=== PATIENT | female | born 1985 | race Native Hawaiian/Other Pacific Islander ===

== ENCOUNTER 2016-10-31 09:24 | Emergency (ER) | payer OTHER ==
[~2016-10-31] VITALS: Ht 162.6 cm; Wt 60.9 kg
[~2016-10-31 09:24] MED LIST: SULF1TAB35 PO
[2016-10-31 09:27] VITALS: BP 112/78; PULSE 99; RESP 13; O2SAT 99
--- NOTE | 2016-10-31 09:50 | ED.REPORT ---
HPI-General Illness Date of Service Oct 31, 2016 ED Provider: Dr. Gabino Gamez M.D. A 31 year old female with a history of gastritis, IBS, and MRSA presents to the ED with dysuria onset yesterday morning. Associated symptoms include urinary frequency, urinary urgency, urinary hesitancy, and hematuria. She has had similar symptoms in the past with a UTI. She tried to flush it by drinking excess water yesterday, with no relief. The patient denies fever, vomiting, or flank pain. Nursing Notes Stated Complaint: POSSIBLE BLADDER INFECTION Chief Complaint: Female Abdominal Pain Nursing Notes Reviewed: Yes Allergies: Coded Allergies: No Known Allergies (Verified Allergy, Unknown, 09/23/14) Scheduled Cephalexin (Cephalexin) 500 Mg Tablet 500 MG PO QID Sulfamethoxazole/Trimeth 800-160 mg (Bactrim DS 800-160 mg) 1 Each Tablet 1 TABLET PO BID General Time Seen by MD: 09:49 Chief Complaint Other (Dysuria) Hx Obtained From: Patient Arrived By: Walk-in Sudden in Onset?: Yes Onset Occurred: Yesterday Symptom Duration: Since onset Associated with: Denies: Fever, Vomiting Pertinent Negative: Relieved by nothing Recent Healthcare: No recent doctor visit Similar Sx Previous: Yes Past Medical History Past Medical History Gastritis MRSA Rt. Breast IBS Past Surgical History Scar tissue removed Rt breast 2005 2010 Noncontributory Family History Noncontributory Smoking History Current Every Day Smoker Social History Works at [employer] Alcohol Use: Denies alcohol use Drug Use: Denies drug use Other Social History: , Lives with children Ambulatory Status Independent Review of Systems + urinary hesitancy Full Review of Systems Constitutional: Denies: Fever GI: Denies: Vomiting Female: Reports: Dysuria, Hematuria, Urinary frequency, Urinary urgency, Denies: Flank pain Physical Exam Vital Signs Vital Signs Date Time Temp Pulse Resp B/P Pulse Ox O2 Delivery O2 Flow Rate FiO2 10/31/16 11:06 36.6 99 13 112/78 99 Room Air 10/31/16 09:27 36.6 99 13 112/78 99 Room Air Initial VS: Reviewed Head / Eyes: Atraumatic, Normocephalic ENT: Conjunctiva normal, No scleral icterus Neck: Supple, Full range of motion Abdomen / GI: Soft, Non-tender Back: No CVA tenderness Skin: Warm, Dry Neurologic: Alert, Oriented, Nonfocal Psychiatric: Mood/affect normal, Behavior normal, Normal thought content General/Constitutional: Awake, Alert, No acute distress Interpretation & Diagnostics URINE DIPSTICK 1.010 sp gravity 7 pH ++ Leukocytes + Nitrites ++ Protein +++ Blood approx. 250 Hemoglobin Otherwise Negative URINE TEST NEGATIVE Lab Results Interpretation Test 10/31/16 10:45 Hold Purple Top Tube Received (Received) Hold Blue Top Tube Received (Received) HCG Beta Subunit 0.500mIU/mL Hold Bow Top Tube Received (Received) Hold Stubbs Top Tube Received (Received) Re-Eval/Medical Decision Source of Hx: Old records Time of Eval: 10:16 Patient Status: Condition improved Re-Evaluation/Progress Note: Discussed with patient diagnosis and plan for discharge. Follow-up and return to the ER instructions given. Patient agrees with plan for care and all questions were addressed. Counseled Regarding: Diagnosis, Need for follow-up, When/why to return to ED Discharge & Departure Primary Impression: UTI (lower urinary tract infection) Disposition: Home Discharge Condition All VS Reviewed: Yes Condition: Stable Patient Instructions: Urinary Tract Infection in Women (ED) Additional Instructions: Thank you for entrusting us with your care. Please take Keflex as prescribed. Urinating immediately after intercourse may help prevent UTIs in the future. Call your primary care provider for a follow-up appointment. Return to the ER with any new or worsening symptoms. Your urine test was negative. The blood test is somewhat more sensitive and I will call you with the result if it is positive. Your welcome to wait for the result here if you like. [facility] Marjorie Attestation Portions of this note were transcribed by Stormy Amezcua. I, Dr. Gamez, personally performed the history, physical exam, and medical decision-making; I reviewed and confirmed the accuracy of the information in the transcribed note. Signed by: Marjorie Marcial, 10/31/2016, 11:10 copies to: SYED BYERS Kirk H MD Oct 31, 2016 09:49 STORMY AMEZCUA Oct 31, 2016 09:57
[2016-10-31] MEDS ORDERED: CEPH500T PO (10:26)
[2016-10-31 11:06] VITALS: BP 112/78; PULSE 99; RESP 13; O2SAT 99
== END 2016-10-31 11:06 | disposition home or self-care (01) ==
LOC: SED 09:24
DX: N39.0 Urinary tract infection, site not specified (principal); F17.200 Nicotine dependence, unspecified, uncomplicated; Z87.19 Personal history of other diseases of the digestive system; Z86.14 Personal history of Methicillin resistant Staphylococcus aureus infection